=== PATIENT | male | born 1985 | race Caucasian/White ===

== ENCOUNTER 2024-11-19 09:40 | Emergency (ER) | payer OTHER, SELFPAY ==
[2024-11-19 09:44] VITALS: BP 146/65; PULSE 63; RESP 18; TEMP 36.6; O2SAT 100
--- NOTE | 2024-11-19 09:49 | ED_ITS ---
HPI - Wound/Laceration General Chief Complaint: Wound/Laceration Stated Complaint: Laceration to Left Hand Time Seen by Provider: 11/19/24 09:50 Source: patient Mode of arrival: ambulatory Limitations: no limitations History of Present Illness HPI narrative: 39-year-old male presented for complaint of a laceration to the left hand sustained 30 minutes prior to arrival. 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 Denies numbness, tingling or decreased ROM. Denies active bleeding. Pt is right hand dominant. Related Data Allergies Allergy/AdvReac Type Severity Reaction Status Date / Time No Known Allergies Allergy Verified 11/19/24 09:45 Review of Systems 2 Review of Systems: CONSTITUTIONAL: Denies body aches, fever, chills, or sweats. EYES: Denies visual changes, redness, or discharge. ENT: Denies rhinorrhea, congestion CARDIOVASCULAR: Denies chest pain, palpitations, or edema. RESPIRATORY: Denies cough or dyspnea. GASTROINTESTINAL: Denies abdominal pain, nausea, vomiting, or diarrhea. SKIN: per HPI MUSCULOSKELETAL: Denies back pain, joint pain, or myalgia. NEUROLOGIC: Denies headache, numbness, tingling, or weakness. PMFSH Comments At time of signature, I have reviewed and agree with nursing past medical, surgical, social and family history unless otherwise noted. Please see nursing chart for further information. There is no relevant family history pertinent to the presenting complaint Exam Narrative: GENERAL: Well-appearing ENT: Mucous membranes moist. Oropharynx without edema, erythema or lesions. NECK: Supple. No lymphadenopathy CHEST: Clear to auscultation. HEART: Regular rate and rhythm. SKIN: Warm, dry. Left hand base of 1st metacarpal with 2.5 cm gaping laceration, no active drainage. CMS intact to the 1st digit. NEURO: Alert and oriented x3. Course Course Emergency Course: Patient is aware of diagnosis, understands and agrees to treatment plan. Anticipatory guidance given. Patient agrees to follow-up as directed and is aware of reasons to seek care at the emergency department. Portions of this record may have been created with voice recognition software Level of Care: Express Care Visit Vital Signs Vital signs: Vital Signs Temperature 98 F 11/19/24 09:44 Pulse Rate 63 11/19/24 09:44 Respiratory Rate 18 11/19/24 09:44 Blood Pressure 146/65 H 11/19/24 09:44 Pulse Oximetry 100 11/19/24 09:44 Oxygen Delivery Room Air 11/19/24 09:44 Temperature 98 F 11/19/24 09:44 Pulse Rate 63 11/19/24 09:44 Respiratory Rate 18 11/19/24 09:44 Blood Pressure 146/65 H 11/19/24 09:44 Pulse Oximetry 100 11/19/24 09:44 Oxygen Delivery Room Air 11/19/24 09:44 Reviewed Procedures Laceration left hand: Date: 11/19/24 Size (cm): 2.5 Description: irregular and contaminated (mildly contaminated black debris removed with irrigation) Depth: simple, single layer Local Anesthetic: lidocaine 1% Amount of anesthesia used (mL): 6 Pre-repair: irrigated extensively (300ml sterile water, skintegrity, iodine) ====== Skin Level ====== Skin layer closed with: nylon Size (cm): 4-0 Number of sutures: 6 Technique: simple, interrupted ====== Subcutaneous Layer ====== ====== Muscle Layer ====== ====== Tendon Layer ====== Dressing: The procedure and its alternatives were reviewed with patient. Risks were reviewed with patient including infection and damage to nearby structures. Patient provided verbal informed consent. The patient was positioned appropriately. Sterile drapes applied to maintain sterile field. Wound was explored for abnormalities including infection and foreign bodies. Sutures placed with wound edges approximated. Patient tolerated well, no complications. Dressing applied per RN. MDM - Wound/Laceration MDM Narrative Medical decision making narrative: Discussed physical exam findings. Tetanus updated today. Tolerated suture placement, 6 to left hand. Rx abx. Advised supportive measures and signs/symptoms to go to the ER. Pt is appropriate for outpt treatment and f/u. Differential Diagnosis Differential diagnosis: Likely laceration, abrasion and avulsion of skin Discharge Plan Discharge Clinical Impression: Laceration Patient Disposition: Home Condition: Stable Instructions: Antibiotic Form, Laceration (ED) Additional Instructions: Your sutures need to be removed in 7-10 days. You can return to the clinic or follow up with your pcp. Wear the dressing that has been applied for the first 24 hours to allow a scab to start forming. After this, you may remove and wash as normal with soap and water. Do NOT wash with peroxide or alcohol. Do not submerge wound in any water Take tylenol or ibuprofen at home for pain Take antibiotic as directed Tetanus updated today. Follow up with your PCP; call to schedule an appointment Go to the ER with any signs of infection such as redness, swelling, increased pain, or drainage. Patient Language: Setswana Prescriptions: New cephalexin 500 mg capsule 500 mg PO Q12H 5 Days Qty: 10 0RF Follow-up/Referrals: PHYSICIAN,MILLED RICE BROKER [Primary Care Provider] - Time of Disposition: 10:45
[2024-11-19] MEDS: LIDOCAINE 1% LOCAL INJ 2 ML AMPUL 6 ML INFILTRATE (10:07)
[2024-11-19] MEDS: TETANUS,DIPHTHERIA,AC PERTUSSIS ADULT (0.5 ML) BOOSTRIX IM (10:08)
== END 2024-11-19 10:50 | disposition home or self-care (01) ==
PROVIDERS: Emergency Provider Nurse Practitioner Family
DX: S61.412A Laceration without foreign body of left hand, initial encounter (principal); Z23 Encounter for immunization; W26.8XXA Contact with other sharp object(s), not elsewhere classified, initial encounter
CPT/HCPCS: 12041; 90471; 90715; 99203; G0463; J2003